=== PATIENT | male | born 1940 | race Caucasian/White ===

== ENCOUNTER 2017-08-12 06:56 | Inpatient (IN) | payer MEDICARE, BC ==
[2017-08-01 14:34] LABS: ABSOLUTE EOSINOPHILS 0.2 thou/uL (0.0-0.7); ABSOLUTE MONOCYTES 0.4 thou/uL (0.0-1.2); ABSOLUTE NEUTROPHILS 3.5 thou/uL (1.6-8.1); BASOPHILS 0.5 %; EOSINOPHILS 2.7 %; HEMATOCRIT 36.2 % (42.0-52.0); HEMOGLOBIN 12.6 gm/dL (14.0-18.0); LYMPHOCYTES 32.6 %; MCH 30.2 pg (26.0-34.0); MCHC 34.8 g/dL (28.0-37.0); MCV 86.7 fL (80.0-100.0); MONOCYTES 6.1 %; MPV 8.1 fl. (7.2-11.1); NUCLEATED RBCS 0 /100WBC; PLATELET COUNT* 180 thou/uL (150-400); POLYS 58.1 %; RBC 4.18 mil/uL (4.50-6.00); RDW-CV 14.8 % (10.5-14.5); WBC 6.1 thou/uL (4.0-11.0)
[2017-08-01 14:46] LABS: APTT 26.8 Seconds (25.0-31.3); INR 1.1; PROTIME 10.6 Seconds (9.20-11.50)
[2017-08-01 14:56] LABS: ALBUMIN 3.7 g/dL (3.4-5.0); CALCIUM 8.6 mg/dL (8.5-10.1); CREATININE 1.1 mg/dL (0.6-1.3); POTASSIUM 4.4 mmol/L (3.5-5.1); TOTAL BILIRUBIN 0.5 mg/dL (<0.1-1.0); TOTAL PROTEIN 6.8 g/dL (6.4-8.2)
[2017-08-01 15:41] LABS: ESR (SEDRATE) 5 mm/hr (0-20)
--- NOTE | 2017-08-01 16:27 | EKG ---
[place] [address] ELECTROCARDIOGRAM REPORT Name: PATY RUIZ Room: PRE IN [facility].#: [id number] Admission: Attend Phys: Bette Limon Discharge: Date of : 38 Report #: [id number] THIS REPORT FOR: //name// [facility] Test Date: 2017-08-01 Test Time: 14:18:40 Pat Name: PATY RUIZ Department: Room: Gender: M Vp Of Marketing: : 1940 Requested By: Everett Medrano Order Number: [id number] Reading MD: Dar Salmon Measurements Intervals [place] Rate: 67 P: 21 ID: [id number] QRS: 36 QRSD: 92 T: -9 QT: 372 QTc: 393 Interpretive Statements Sinus rhythm Multiple ventricular premature complexes Borderline prolonged ID interval Probable anteroseptal infarct, old Borderline repolarization abnormality No previous ECG available for comparison Electronically Signed On 08-01-2017 16:27:37 CDT by Dar Salmon [email or web address] <ELECTRONICALLY SIGNED> By: Dar Salmon MD, [facility] 08/01/17 1627 1418 1418 Dar Salmon MD, FACC /EPI
[~2017-08-12] VITALS: Ht 170.2 cm; Wt 79.4 kg
[~2017-08-12 06:56] MED LIST: ALEVE220 MG PO; AMITRIPTYLINE H25 M3 PO; ASPIR 8181 M1 PO; ATORVASTATIN CA40 MG PO; CARDURA XL8 MG PO; CENTRUM SILVER1 EAC2 PO; COZAAR 50 MG TA50 M2 PO; FISH OIL 1,001000 M2 PO; IMDUR 30 MG TAB30 M1 PO; MAGOX 400400 MG PO; OMEPRAZOLE40 MG PO
[2017-08-12 08:43] VITALS: BP 144/66
--- NOTE | 2017-08-12 14:37 | NUR ---
PATIENT ARRIVED ON UNIT FROM PACU AT 1330. ORIENTED PATIENT TO ROOM, CALL LIGHT, AND TV. PATIENT VERBALIZED UNDERSTANDING. ALERT AND ORIENTED X'S 4. VITAL SIGNS AND SPO2 STABLE. CAPNO IN PLACE. IV CLEAN, FLUIDS INFUSING. PAIN WELL CONTROLLED WITH PAIN MEDS. TEDS, SCD'S, YELLOW SOCKS, POLAR CARE IN PLACE. TOLERATED DIET. DID HAVE A BOUT OF NAUSEA, GAVE ZOFRAN, NAUSEA SUBSIDED. HAS NOT VOIDED YET. CALL LIGHT WITHIN REACH, WILL CONTINUE TO MONITOR.
[2017-08-12 14:44] VITALS: BP 135/68
--- NOTE | 2017-08-12 14:57 | NUR ---
DEFER ORDERS TO PT TO ADDRESS FUNCTIONAL MOB AND AROM OF LEFT KNEE
[2017-08-12 16:02] VITALS: BP 134/66
--- NOTE | 2017-08-12 19:00 | NUR ---
PATIENT REMAINED ALERT AND ORIENTED X'4. VITAL SIGNS AND SPO2 STABLE. IV CLEAN, FLUIDS INFUSING. AGREE WITH PREVIOUS ASSESSMENT. COMPLETED HOURLY ROUNDING. CALL LIGHT WITHIN REACH. WILL CONTINUE TO MONITOR.
[2017-08-12 21:15] VITALS: BP 108/66
[2017-08-12 23:43] VITALS: BP 119/59
[2017-08-13 04:00] VITALS: BP 140/65
[2017-08-13 04:14] LABS: HEMOGLOBIN 10.7 gm/dL (14.0-18.0)
--- NOTE | 2017-08-13 05:08 | NUR ---
PATIENT ALERT AND ORIENTED. VITALS STABLE. ON 2.5 LITERS OF OXYGEN, CONTINUOUS PULSE OX IN PLACE. LEFT KNEE DRESSING C/D/I. VOIDS PER BSC. UP WITH ASSIST X 1. PAIN MEDICATION GIVEN X 1. DENIES THE NEED FOR PAIN MEDICATION AT THIS TIME RATING HIS PAIN A 2 OUT OF 10. FLUIDS INFUSING PER ORDER. HOURLY ROUNDS. BED ALARM IN USE. NURSING WILL CONTINUE TO MONITOR.
[2017-08-13 07:47] VITALS: BP 136/75
--- NOTE | 2017-08-13 16:35 | NUR ---
PATIENT REMAINS ALERT AND ORIENTED. PAIN POORLY CONTROLLED THIS AFTERNOON AFTER THERAPY. PATIENT UNABLE TO USE CPM. ORTHO RESIDENT AND DR. RIOS NOTIFIED. NEW ORDERS RECEIVED. DRESSING TO KNEE DRY AND INTACT. VSS. VOIDING PER BSC. SCD'S WHILE IN BED. POLAR CARE IN USE. PARTICIPATED WITH THERAPY. TRANSFERS AND AMBULATES WITH ASSIST OF 1, GB, AND WALKER. AT BEDSIDE. WILL CONTINUE TO MONITOR.
--- NOTE | 2017-08-13 16:39 | NUR ---
SPOKE WITH PT.AND . HE WAS HAVING PAIN CONTROL ISSUES TODAY. HE IS NORMALLY INDEPENDENT AND ACTIVE AT HOME. HE HAS A WALKER BUT HAS NOT HAD TO USE IT PRIOR TO SURGERY. HE WOULD LIKE TO GO TO [facility]. HAS FIBROMYALGIA AND HE IS AFRAID SHE WILL NOT BE ABLE TO ASSIST HIM AT HOME. WILL SEND REFERRAL IN AM.
[2017-08-13 17:41] VITALS: BP 145/73
[2017-08-13 21:45] VITALS: BP 151/65
[2017-08-13 23:59] VITALS: BP 153/76
[2017-08-14 04:11] VITALS: BP 148/81
[2017-08-14 04:23] LABS: HEMATOCRIT 30.2 % (42.0-52.0); HEMOGLOBIN 10.7 gm/dL (14.0-18.0)
--- NOTE | 2017-08-14 05:01 | NUR ---
PATIENT ALERT AND ORIENTED. VITALS STABLE. RA. LEFT KNEE DRESSING C/D/I. STATES THAT PAIN IS BETTER CONTROLLED. PO AND IV PAIN MEDICATION HAVE BEEN GIVEN. UP WITH ASSIST X 1 TO BSC. DENIES NAUSEA. SLEPT COMFORTABLY. HOURLY ROUNDS. BED ALARM IN USE. NURSING WILL CONTINUE TO MONITOR.
[2017-08-14 08:30] VITALS: BP 153/77
[2017-08-14 10:30] VITALS: BP 141/80
--- NOTE | 2017-08-14 12:02 | NUR ---
FAXED REFERRAL TO [facility] FOR A SKILLED BED PER HIS [id number].
--- NOTE | 2017-08-14 13:18 | S ---
[address] [address] SURGICAL PATH RPT PROCEDURE Name: PTAY MYERS Room: [address] IN M.R.#: [id number] Admission: 08/12/17 Date of : 38 Discharge: Report #: [id number] Path Case #: [id number] PATHOLOGY REPORT COLLECTION DATE: 08/12/2017 RECEIVED DATE: 08/12/2017 SUBMITTING PHYS: Dr. Everett Medrano OTHER PHYS: Dr. Malik Hoyos SPECIMEN(S) RECEIVED: A.L knee bone and tissue * * * * * * * * * * * * FINAL DIAGNOSIS: Left knee bone and tissue, total knee replacement: - Benign meniscus and synovium and benign bone and cartilage with severe degenerative changes. (OLIVIA:karl; 08/14/2017) PATHOLOGIST: Jasper Ferrari M.D. REPORT ELECTRONICALLY SIGNED BY: Jasper Ferrari M.D. DATE/TIME: 08/14/2017 13:17 * * * * * * * * * * * * GROSS PATHOLOGY: Received in formalin labeled "Paty Myers, left knee bone and tissue," are multiple segments of bone, including tibial plateau, measuring 9.7 x 8.8 x 2.2 cm in aggregate dimensions admixed with soft tissue; meniscus is present. The specimen shows focal eburnation of the articular surfaces. Manager Steel sections of bone and soft tissue are submitted in cassette A1, following decalcification. (CAA; 08/13/2017) CLINICAL HISTORY: Left knee DJD; advanced degenerative joint disease, left INITIAL CPT CODE(S): A; 40499, 76835 Professional services performed by [facility] at [facility] [address] [place] [address] Technical services performed by [facility] at [address] [place] [address], [address] [address]. [address] [address] SURGICAL PATH RPT PROCEDURE Name: PATY MYERS Room: [address] IN [facility].#: [id number] Admission: 08/12/17 Date of : 38 Discharge: Report #: [id number] Path Case #: [id number] [facility] [address] [address] PHONE: [phone] DIRECTOR: Dixon Baldwin M.D. * * * END OF REPORT * * *
[2017-08-14 15:30] VITALS: BP 130/63
[2017-08-14 19:32] VITALS: BP 153/77
--- NOTE | 2017-08-14 19:50 | NUR ---
PATIENT REMAINED ALERT AND ORIENTED X'S 4. VITAL SIGNS AND SPO2 STABLE. IV CLEAN, FLUSHING SALINE. PAIN WELL CONTROLLED WITH PAIN MEDS. COMPLETED PT/OT. CPM UP TO 60 DEGREES. TOLERATED DIET NO NAUSEA AND VOMITING. [facility] CARE, TEDS, SCD'S IN PLACE. COMPLETED HOURLY ROUNDING. CALL LIGHT WITHIN REACH. WILL CONTINUE TO MONITOR.
[2017-08-14 21:50] VITALS: BP 151/75
[2017-08-15 00:22] VITALS: BP 147/71
[2017-08-15 04:06] VITALS: BP 146/72
--- NOTE | 2017-08-15 05:23 | NUR ---
PATIENT ALERT AND ORIENTED. VITALS STABLE. PAIN CONTROLLED WITH PO PAIN MEDS. PLANS TO DISCHARGE HOME TODAY. UP WITH ASSIST X 1 TO BATHROOM. BED ALARM IN USE. HOURLY ROUNDS. NURSING WILL CONTINUE TO MONITOR.
[2017-08-15 08:54] VITALS: BP 105/66
--- NOTE | 2017-08-15 12:07 | NUR ---
'S CAN ACCEPT PT.TODAY TO A SNF BED. NOTIFIED . NOTIFIED PT. DISCHARGE ORDERS FAXED TO [facility]. PER NURSING REQUEST, SHE WILL ARRANGE WC VAN FOR 1400. CHART COPIED TO GO WITH PT. NURSING TO CALL REPORT. PT.WILL LET KNOW OF DISCHARGE TIME. PT.SAID HE DID NOT WANT TO DO AFTERNOON THERAPY HERE.
[2017-08-15] MEDS ORDERED: HYDROCODONE-AP1 EAC6 PO (12:22)
[2017-08-15] MEDS ORDERED: OXYCODONE HCL 55 MG PO (12:26)
[2017-08-15] MEDS ORDERED: ELIQUIS2.5 MG PO (12:46)
[2017-08-15 12:49] VITALS: BP 105/66
[2017-08-15 13:02] VITALS: BP 105/66
[2017-08-15 14:14] VITALS: BP 105/66
--- NOTE | 2017-08-15 14:15 | NUR ---
ASSUMED CARES OF PT [id number]. PT IN BED, BED IN LOW LOCKED POSITION. FALL PRECAUTUIONS IN PLACE. CALL BUTTON AND PERSONAL ITEMS IN PT REACH. PT A&O X4, HRRR PER AUSCULTATION, LCTAB, ABD SOFT, NON TENDER AND ACTIVE 4 QUADS. PASSING GAS. VSS ON 2L NC, AFEBRILE, PERRLA, SKIN INTACT. LEFT KNEE MEPILEX DRESSING C/D/I, NO S/SX OF INFECTION AT SURGICAL SITE. LEFT FA IV PATENT TO FLUSH. PT UP ONE ASSIST WITH GB AND WALKER TO BATHROOM. PT CLEARED FOR D/C TO REHAB/SNF UNTIL RELEASED TO GO HOME. IV REMOVED. DISCHARGE EDUCATION COMPLETED AND SIGNED, EDUCATION ON STROKES COMPLETED. PRESCRIPTIONS GIVEN, UNABLE TO ACCESS MED EDUCATION/CARE NOTES VIA COMPUTER. TRIED SEVERAL DIFFERENT COMPUTERS AND HAD OTHER STAFF TRY, COMPUTER WOULD INDICATE UNABLE TO REACH SITE, TRY AGAIN LATER, ADMINISTATION NOTIFIED WAS MESSAGE ON COMPUTER SCREEN. CONSEQUENTLY, MEDS REVIEWED ORALLY WITH PT AND SPOUSE. MEDICARE FORM SIGNED. TRANSPORT ARRIVED TO TAKE PT VIA W/C WITH [facility]. REPORT TO SRIDEVI AT [facility] WAS GIVEN REPORT AT 1404 REGARDING PT SHE IS TO RECEIVE. DISCHARGE COMPLETED AT 1400. PT REMAINED STABLE, TALKATIVE, SMILING AND STATED HE IS READY TO GO. HOURLY ROUNDS COMPLETED.
--- NOTE | 2017-09-04 20:22 | OP ---
[address] [address] OPERATIVE REPORT Name: PATY RUIZ Room: [address] IN M.R.#: [id number] Admission: 08/12/17 Attend Phys: Bette Limon Discharge: 08/15/17 Date of : 38 Report #: [id number] THIS REPORT FOR: //name// CC: Malik Hoyos DICTATED BY: Jonnie Rowley DO DATE OF SERVICE: 08/12/2017 PREOPERATIVE DIAGNOSIS: Advanced degenerative joint disease, left knee. POSTOPERATIVE DIAGNOSIS: Advanced degenerative joint disease, left knee. PRIMARY SURGEON: Everett Medrano DO. OPERATION SUPERVISOR: Jonnie Rowley DO. SECOND OPERATION SUPERVISOR: Paty Kim DO. THIRD OPERATION SUPERVISOR: PROCEDURE: Left total knee arthroplasty. ANESTHESIA: General with local capsular block. ESTIMATED BLOOD LOSS: 100 mL. COMPLICATIONS: None. SPECIMEN: None. ANTIBIOTICS: 2 grams Ancef. TOURNIQUET: 54 minutes at 300. IMPLANTS: Nima Persona cruciate retaining size 9 femur, size 5 tibia, 11 mm medial congruent vitamin E poly, 32 mm patella and two bags of [place]acos cement. INDICATIONS: The patient is a 77-year-old male that has been seen in our clinic multiple times regarding his left knee pain. Unfortunately, he has failed conservative treatment. His knee pain is affecting his ability to perform ADLs and quality of life. He presents for above-mentioned procedure. Risks, benefits, complications and alternatives to surgery were thoroughly reviewed and discussed with him, and [place] [address] OPERATIVE REPORT Name: PATY RUIZ Room: [address] IN .R.#: [id number] Admission: 08/12/17 Attend Phys: Bette Limon Discharge: 08/15/17 Date of : 38 Report #: [id number] DESCRIPTION OF PROCEDURE: The patient was taken to OR suite, placed supine on the OR table, given the benefit of general anesthetic. A well-padded tourniquet was placed on the left upper thigh. The patient was prepped and draped in the usual sterile fashion. A preprocedure time-out was taken confirming correct site, patient and procedure. The procedure began with a midline incision over the left knee. Dissection was carried down through skin and subcutaneous tissues to the level of the joint capsule. A second knife was used to perform a medial parapatellar arthrotomy. A medial periosteal sleeve was developed on the tibia. The patella was everted and leg was brought into flexion. Excess fat pad, ACL and PCL were resected. Opening reamer was used to access the femoral canal. Intramedullary guide jackie was then inserted down the canal, and a distal femoral cutting block was placed at 5 degrees of valgus. In addition, due to his flexion contracture, an additional 1 mm bone was resected from the distal femur. Block was pinned in place, and cut was made. Next, we proceeded to the tibia. Extramedullary guide jackie was used to place a proximal tibial cut. This was measured 10 mm off the high side and placed in line with the mechanical axis referencing the medial third tibial tubercle, mid talus. Cutting block pinned in place, and a proximal tibial cut was then made. We then proceeded to size the femur using the AP sizing guide. This was measuring size 9. A 4-in-1 cutting block was pinned and placed in 3 degrees external rotation referencing the epicondylar axis. Anterior and posterior cuts as well as anterior and posterior chamfer cuts were made. Please note that retractors placed at all times to protect vital structures during bone cuts. All excess bone was removed. Excess meniscus was removed. The tibia was then sized. This was measured and pinned in place utilizing a drop jackie trial femur and then a trial insert. We were able to obtain full extension with the knee and felt well balanced in flexion and extension. We then proceeded to resurface the patella using free hand cut. This was measured at a size 32. A 3 PEG hole trial patella was then placed as well. Once again, knee was taken through range of motion. Patella is tracking well and felt to be well balanced in flexion and extension. All implants were removed. The proximal tibia was prepared with a cruciform punch and drill. The knee was thoroughly irrigated, while the cement was mixed on the back table. Final implants were placed beginning with the tibial tray, followed by the femur. This was compressed with 12 mm spacer, and patella button was then clamped down as well. All excess cement was removed. The leg was held in a single position well. Cement has been adequately cured. We did trial with 10, 11 and 12 poly, the 11 felt to provide the best stability and full range of motion. This final poly was then placed. Tourniquet was let down for a total time 54 minutes. Hemostasis was obtained. The knee was again thoroughly irrigated. A posterior capsular block was performed. PRP was injected as well. Capsule was closed with interrupted #1 Vicryl. The subcutaneous tissues were closed with 2-0 Vicryl, followed by running 3-0 Stratafix and Dermabond glue for skin. Sterile dressing was placed. [place] [address] OPERATIVE REPORT Name: PATY RUIZ Room: [address] IN M.R.#: [id number] Admission: 08/12/17 Attend Phys: Bette Limon Discharge: 08/15/17 Date of : 38 Report #: [id number] The patient tolerated the procedure well and was transferred to PACU in stable condition. All sponge and needle counts correct x 2. <ELECTRONICALLY SIGNED> By: Everett Medrano DO 09/04/172021 1139 1244Dlori Medrano DO /nt
== END 2017-08-15 14:00 | DRG 470 ==
LOC: M.PRE 06:56 → M.ORTHSURG 08:14 → M.TBA 08:14 → M.PRE 08:17 → M.ORTHSURG 13:23
PROVIDERS: Orthopaedic Surgery; ADMIT Internal Medicine
PROC: 0SRD0J9 Replacement of Left Knee Joint with Synthetic Substitute, Cemented, Open Approach (ICD-10-PCS; principal; 2017-08-12)
DX: M17.12 Unilateral primary osteoarthritis, left knee (principal); I10 Essential (primary) hypertension; K21.9 Gastro-esophageal reflux disease without esophagitis; N40.0 Benign prostatic hyperplasia without lower urinary tract symptoms; E78.5 Hyperlipidemia, unspecified; I25.10 Atherosclerotic heart disease of native coronary artery without angina pectoris; Z79.899 Other long term (current) drug therapy

== ENCOUNTER 2018-06-04 19:21 | Inpatient (IN) | payer MEDICARE, BC ==
[~2018-06-04] VITALS: Ht 170.2 cm; Wt 84.8 kg
[~2018-06-04 19:21] MED LIST changes: +COZAAR 50 MG TA50 M1 PO; -COZAAR 50 MG TA50 M2 PO; +ELIQUIS2.5 MG PO; +HYDROCODONE-AP1 EAC6 PO; +OXYCODONE HCL 55 MG PO
[2018-06-04 19:31] VITALS: BP 92/65
[2018-06-04 20:01] LABS: HEMATOCRIT 38.7 % (42.0-52.0); HEMOGLOBIN 13.2 gm/dL (14.0-18.0); MCH 29.4 pg (26.0-34.0); MCHC 34.1 g/dL (28.0-37.0); MCV 86.2 fL (80.0-100.0); NUCLEATED RBCS 0 /100WBC; PLATELET COUNT* 175 thou/uL (150-400); RBC 4.49 mil/uL (4.50-6.00); WBC 17.1 thou/uL (4.0-11.0)
[2018-06-04 20:04] LABS: CREATININE 1.4 mg/dL (0.6-1.3); POTASSIUM 4.3 mmol/L (3.5-5.1)
[2018-06-04 20:08] LABS: ALBUMIN 3.4 g/dL (3.4-5.0); INR 1.1; PROTIME 10.8 Seconds (9.20-11.50); TOTAL BILIRUBIN 1.1 mg/dL (<0.1-1.0); TOTAL PROTEIN 6.9 g/dL (6.4-8.2)
[2018-06-04 20:24] LABS: ABSOLUTE LYMPHOCYTES 0.7 thou/uL (0.8-5.3); ABSOLUTE MONOCYTES 1.5 thou/uL (0.0-1.2); ABSOLUTE NEUTROPHILS 14.9 thou/uL (1.6-8.1); PLATELET ESTIMATE ADEQUATE
[2018-06-04 21:14] LABS: URINE BILIRUBIN NEGATIVE (Negative); URINE BLOOD NEGATIVE (Negative); URINE CLARITY CLEAR; URINE COLOR YELLOW; URINE GLUCOSE-RANDOM NEGATIVE (Negative); URINE KETONES NEGATIVE (Negative); URINE LEUKOCYTES-REFLEX NEGATIVE (Negative); URINE NITRITE-REFLEX NEGATIVE (Negative); URINE PROTEIN NEGATIVE (Negative); URINE SPECIFIC GRAVITY <= 1.005 (1.005-1.030); URINE UROBILINOGEN 0.2 E.U./dl (0.2-1.0)
[2018-06-04 23:04] VITALS: BP 144/63
[2018-06-04 23:11] VITALS: BP 136/60
[2018-06-05] MEDS ORDERED: IMDUR 30 MG TAB30 M1 PO (04:46)
[2018-06-05] MEDS ORDERED: B-121000 MC2 PO (04:48)
--- NOTE | 2018-06-05 06:11 | NUR ---
REPORT RECIEVED FROM ER. PT ADMITTED TO ROOM 314. PT ORIENTED TO ROOM, FALL AGREEMENT WENT OVER, CALL LIGHT SHOWN, PT STATED UNDERSTANDING. ADMISSION DOCUMENTED. MEDS GIVEN PER E-MAR. IV PATENT, FLUIDS INFUSING. PAIN MEDS GIVEN PER E-MAR WITH PARTIAL RELIEF. WILL CONTINUE WITH PLAN OF CARE.
--- NOTE | 2018-06-05 14:28 | NUR ---
CM ASSESSMENT: PT LIVES AT HOME WITH HIS . 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 HE DOES NOT NEED ANY ASSIST WITH ADLS. CM TO FOLLOW IF NEEDED
[2018-06-05 16:00] VITALS: BP 126/60
--- NOTE | 2018-06-05 18:46 | NUR ---
ALERT AND ORIENTED X 4. LUNGS CLEAR-ROOM AIR. FEBRILE THIS EVENING AT 101.2. ADMINISTERED TYLENOL AND PAIN MEDICATION, TEMP DOWN TO 99.7. GOOD APPETITE, NO REPORTED N/V. OOB AD AB-STEADY ON FEET. NEW IV IN RIGHT HAND-22 GAUGE. CALLS APPROPRIATELY FOR ANY NEEDED ASSISTANCE.
[2018-06-05 21:00] VITALS: BP 125/57
--- NOTE | 2018-06-06 05:32 | NUR ---
PT SLEPT MOST OF SHIFT. ASSESSMENT DOCUMENTED. MEDS GIVEN PER E-MAR. IV PATENT, FLUIDS INFUSING. NO REPORTS OF PAIN OR NAUSEA THIS SHIFT. PT ASKING FOR DIET TO BE ADVANCED. WILL CONTINUE WITH PLAN OF CARE.
[2018-06-06 05:40] LABS: HEMOGLOBIN 11.7 gm/dL (14.0-18.0); MCH 29.7 pg (26.0-34.0); MCHC 34.3 g/dL (28.0-37.0); MCV 86.5 fL (80.0-100.0); MPV 9.4 fl. (7.2-11.1); RBC 3.93 mil/uL (4.50-6.00); RDW-CV 14.9 % (10.5-14.5); WBC 14.3 thou/uL (4.0-11.0)
[2018-06-06 06:04] LABS: ALBUMIN 2.8 g/dL (3.4-5.0); CALCIUM 8.1 mg/dL (8.5-10.1); CREATININE 1.2 mg/dL (0.6-1.3); POTASSIUM 3.8 mmol/L (3.5-5.1); TOTAL BILIRUBIN 1.2 mg/dL (<0.1-1.0); TOTAL PROTEIN 6.2 g/dL (6.4-8.2)
[2018-06-06 07:40] VITALS: BP 125/55
[2018-06-06 16:00] VITALS: BP 142/63
--- NOTE | 2018-06-06 16:48 | NUR ---
PATIENT TOLERATING LOW FAT DIET. PRN VICODIN GIVEN X 1 FOR ABD PAIN, GOOD RELIEF NOTED. IVF SL THIS SHIFT, SCHED IV ABX REMAIN INFUSING ORDERED. FAMILY AT BEDSIDE. PATIENT HAD SOME LOOSE STOOLS THIS AM BUT NONE THIS EVENING. VOIDING PER URINAL.
[2018-06-07] VITALS: BP 153/67
--- NOTE | 2018-06-07 05:06 | NUR ---
PATIENT AWAKE MOST OF THE NIGHT WATCHING TV. PT WITH SALINE LOCK IN LT HAND; ANTIBIOTICS INFUSED PER DR ORDER. PT C/O PAIN X1 AT HS AND RECEIVED ONE HYDROCODONE. PT IS UP AD AB AND USES BSC. PT DENIES NEEDS AT THIS TIME. FREQUENTLY USED ITEMS AND CALL LIGHT WITHIN REACH. SIDERAILS UPX2. WILL CONTINUE TO MONITOR.
[2018-06-07 05:31] LABS: CALCIUM 8.1 mg/dL (8.5-10.1); HEMOGLOBIN 10.6 gm/dL (14.0-18.0); MCH 29.5 pg (26.0-34.0); MCHC 34.3 g/dL (28.0-37.0); MCV 85.8 fL (80.0-100.0); MPV 9.5 fl. (7.2-11.1); POTASSIUM 3.6 mmol/L (3.5-5.1); RBC 3.61 mil/uL (4.50-6.00); RDW-CV 15.1 % (10.5-14.5); WBC 11.4 thou/uL (4.0-11.0)
[2018-06-07 09:10] VITALS: BP 149/83
[2018-06-07] MEDS ORDERED: CIPRO500 MG PO (12:15)
[2018-06-07] MEDS ORDERED: FLAGYL500 M1 PO (12:15)
[2018-06-07 12:51] VITALS: BP 113/76
--- NOTE | 2018-06-07 14:21 | NUR ---
1420 PT DISCHARGED VIA WHEELCHAIR ASSISTED BY NURSING STAFF ACCOMPANIED BY HIS . PT GIVEN PRESCRIPTIONS WELL CARE NOTES. IS ABLE TO MAKE NEEDS KNOWN, NO C/O AT TIME OF DISCHARGE. PT INFORMED TO FOLLOW UP WITH GI, AND EXPRESSED UNDERSTANDING.
== END 2018-06-07 14:27 | disposition home or self-care (01) | DRG 392 ==
LOC: M.ERS 19:21 → M.TBA-ER 22:22 → M.3W 22:22
PROVIDERS: Emergency Medicine; Family Medicine; ADMIT Internal Medicine
DX: K57.32 Diverticulitis of large intestine without perforation or abscess without bleeding (principal); R65.10 Systemic inflammatory response syndrome (SIRS) of non-infectious origin without acute organ dysfunction; E44.1 Mild protein-calorie malnutrition; K21.9 Gastro-esophageal reflux disease without esophagitis; N40.0 Benign prostatic hyperplasia without lower urinary tract symptoms; N18.3 Chronic kidney disease, stage 3 (moderate); E78.5 Hyperlipidemia, unspecified; I25.10 Atherosclerotic heart disease of native coronary artery without angina pectoris; I12.9 Hypertensive chronic kidney disease with stage 1 through stage 4 chronic kidney disease, or unspecified chronic kidney disease; Z96.652 Presence of left artificial knee joint; Z68.29 Body mass index [BMI] 29.0-29.9, adult; Z79.82 Long term (current) use of aspirin; Z79.899 Other long term (current) drug therapy; Z82.49 Family history of ischemic heart disease and other diseases of the circulatory system; Z82.3 Family history of stroke